=== PATIENT | female | born 1990 | race Hispanic/Latino ===

== ENCOUNTER 2018-07-23 19:12 | Emergency (ER) | payer MEDICAID, OTHER ==
[~2018-07-23 19:12] MED LIST: PREN1TAB89 PO
[2018-07-23 19:57] LABS: BILIRUBIN,URINE Negative (NEGATIVE); COLOR,URINE Yellow (YELLOW); GLUCOSE, URINE (UA) Negative (NEGATIVE); KETONES,URINE Trace mg/dL (NEGATIVE); LEUKOCYTE ESTERASE ,URINE Small (NEGATIVE); NITRATE,URINE Negative (NEGATIVE); OCCULT BLOOD,URINE Small (NEGATIVE); PH,URINE 5.5 (5.0-8.0); PROTEIN,URINE Negative (NEGATIVE); UROBILINOGEN,URINE 0.2 mg/dL (0.2-1.0)
[2018-07-23 19:58] LABS: APPEARANCE,URINE SLIGHTLY CLOUDY (CLEAR)
[2018-07-23 19:59] LABS: HCG,QUAL RESULT NEGATIVE (NEGATIVE)
[2018-07-23 20:20] LABS: BACTERIA,URINE Few /HPF (None Seen); MUCUS,URINE Rare LPF (None Seen); SQUAMOUS EPITHELIAL CELL,UR Moderate /HPF (0-2)
[2018-07-23] MEDS ORDERED: ONDANSETRON ODT 4 MG TAB ONE (20:20)
[2018-07-23] MEDS ORDERED: ACETAMINOPHEN EXTRA STRENGTH 500 MG TABLET ONE (20:20)
[2018-07-23] MEDS ORDERED: KETOROLAC TROMETHAMINE 60 MG/2 ML VIAL ONE (20:20)
== END 2018-07-23 21:10 | disposition home or self-care (01) ==
LOC: EDH 19:12
DX: N30.00 Acute cystitis without hematuria (principal)
CPT/HCPCS: 81001; 81025; 87804 ×2; 96372; 99283; J1885

== ENCOUNTER 2019-04-09 18:39 | Emergency (ER) | payer OTHER ==
[2019-04-09] MEDS ORDERED: DEXAMETHASONE SOD PHOSPHATE 10MG/ML 1ML VIAL ONE (19:05)
[2019-04-09] MEDS ORDERED: DIPHENHYDRAMINE HCL 25 MG CAPSULE ONE (19:06)
[2019-04-09] MEDS ORDERED: FAMOTIDINE 20MG TAB 20 MG TAB ONE (19:06)
== END 2019-04-09 20:26 | disposition home or self-care (01) ==
LOC: EDH 18:39
DX: L50.0 Allergic urticaria (principal)
CPT/HCPCS: 96372; 99283; J1100; Q0163

== ENCOUNTER 2019-07-10 08:08 | Emergency (ER) | payer MEDICAID ==
[2019-07-10 09:15] LABS: BASOPHILS % (AUTO) 0.1 % (0.0-5.0); EOSINOPHILS % (AUTO) 0.2 % (0.0-8.0); LYMPHOCYTES % (AUTO) 5.7 % (21.0-51.0); MEAN CORPUSCULAR HEMOGLOBIN 28.7 pg (27.0-33.0); MEAN CORPUSCULAR VOLUME 89.8 fL (79-99); MONOCYTES % (AUTO) 2.7 % (3.0-13.0); NEUTROPHILS % (AUTO) 90.9 % (40.0-77.0); PLATELET COUNT (AUTO) 294 K/uL (130-400); RED BLOOD CELL COUNT(AUTO) 5.01 MIL/uL (4.00-5.50); RED CELL DISTRIBUTION WIDTH 13.8 % (11.0-15.5); WHITE BLOOD COUNT (AUTO) 10.7 K/uL (4.8-10.8)
[2019-07-10 09:26] LABS: APPEARANCE,URINE Cloudy (CLEAR); BILIRUBIN,URINE Negative (NEGATIVE); COLOR,URINE Yellow (YELLOW); GLUCOSE, URINE (UA) Negative (NEGATIVE); KETONES,URINE Negative (NEGATIVE); LEUKOCYTE ESTERASE ,URINE Small (NEGATIVE); NITRATE,URINE Negative (NEGATIVE); OCCULT BLOOD,URINE Negative (NEGATIVE); PROTEIN,URINE Trace mg/dL (NEGATIVE)
[2019-07-10 09:29] LABS: AMPHET/METH SCREEN,URINE NEGATIVE (NEGATIVE); BARBITURATE SCREEN, URINE NEGATIVE (NEGATIVE); BENZODIAZEPINES SCREEN,URINE NEGATIVE (NEGATIVE); CANNABINOID SCREEN,URINE NEGATIVE (NEGATIVE); COCAINE SCREEN,URINE NEGATIVE (NEGATIVE); OPIATE SCREEN,URINE NEGATIVE (NEGATIVE); PHENCYCLIDINE SCREEN,URINE NEGATIVE (NEGATIVE)
[2019-07-10 09:31] LABS: CREATININE 0.7 mg/dL (0.5-1.5); POTASSIUM 4.1 mmol/L (3.5-5.1)
[2019-07-10 09:39] LABS: ALBUMIN 4.3 g/dL (3.5-5.0); BILIRUBIN,DIRECT 0.1 mg/dL (0.0-0.3); BILIRUBIN,TOTAL 0.5 mg/dL (0.2-1.0); TOTAL PROTEIN, SERUM 8.5 g/dL (6.0-8.3)
[2019-07-10 09:41] LABS: HCG,QUAL RESULT NEGATIVE (NEGATIVE)
[2019-07-10] MEDS ORDERED: KETOROLAC TROMETHAMINE 30MG/ML ONE (09:47)
[2019-07-10] MEDS ORDERED: ONDANSETRON HCL 4 MG/2 ML VIAL ONE (09:47)
[2019-07-10] MEDS ORDERED: SODIUM CHLORIDE 0.9% 1000ML 1,000 ML IV ONE (09:48)
[2019-07-10 09:59] LABS: BACTERIA,URINE Few /HPF (None Seen); RBC,URINE 0-1 /HPF (0-1); WBC,URINE 0-1 /HPF (0-1)
== END 2019-07-10 10:40 | disposition home or self-care (01) ==
LOC: EDH 08:08
DX: K52.9 Noninfective gastroenteritis and colitis, unspecified (principal)
CPT/HCPCS: 36415; 80048; 80076; 80305; 81001; 81025; 83690; 85025; 96361; 96374; 96375; 99284; J1885; J2405; J7030

== ENCOUNTER 2020-04-03 08:00 | Emergency (ER) | payer MEDICAID ==
[2020-04-03] MEDS ORDERED: ACETAMINOPHEN 325 MG TAB ONE (08:41)
== END 2020-04-03 10:08 | disposition home or self-care (01) ==
LOC: EDH 08:00
DX: U07.1 COVID-19 (principal)
CPT/HCPCS: 71045; 87426; 87804

== ENCOUNTER 2020-06-14 10:32 | Emergency (ER) | payer MEDICAID ==
[2020-06-14 11:15] LABS: APPEARANCE,URINE CLEAR (CLEAR); BILIRUBIN,URINE Negative (NEGATIVE); COLOR,URINE Yellow (YELLOW); GLUCOSE, URINE (UA) Negative (NEGATIVE); KETONES,URINE Negative (NEGATIVE); LEUKOCYTE ESTERASE ,URINE Large (NEGATIVE); NITRATE,URINE Negative (NEGATIVE); OCCULT BLOOD,URINE Nonhemolyzed Trace (NEGATIVE); PROTEIN,URINE Negative (NEGATIVE); UROBILINOGEN,URINE 0.2 mg/dL (0.2-1.0)
[2020-06-14 11:50] LABS: BACTERIA,URINE Moderate /HPF (None Seen)
[2020-06-14 11:51] LABS: MUCUS,URINE Moderate LPF (None Seen)
[2021-03-12] MEDS ORDERED: [UNRECOGNIZED DRUG - CODE] PO (13:13)
== END 2020-06-14 13:30 | disposition home or self-care (01) ==
LOC: EDH 10:32
DX: M54.5 Low back pain (principal); N39.0 Urinary tract infection, site not specified; E66.01 Morbid (severe) obesity due to excess calories; Z68.41 Body mass index [BMI] 40.0-44.9, adult
CPT/HCPCS: 81001; 81025; 87088

== ENCOUNTER → 2020-10-29 | Outpatient (CLI) | payer OTHER ==
[~2020-10-29] VITALS: Ht 7.6 cm; Wt 109.0 kg
== END | disposition home or self-care (01) ==
LOC: DTH 12:22
PROVIDERS: ATTEND Surgery
DX: G47.33 Obstructive sleep apnea (adult) (pediatric) (principal); E66.01 Morbid (severe) obesity due to excess calories; E11.9 Type 2 diabetes mellitus without complications; E78.00 Pure hypercholesterolemia, unspecified
CPT/HCPCS: 97802

== ENCOUNTER → 2020-11-27 | Outpatient (CLI) | payer OTHER | END | disposition home or self-care (01) | LOC: DTH 10:44 | PROVIDERS: ATTEND Surgery | DX: G47.33 Obstructive sleep apnea (adult) (pediatric) (principal); E66.01 Morbid (severe) obesity due to excess calories; E11.9 Type 2 diabetes mellitus without complications; E78.00 Pure hypercholesterolemia, unspecified | CPT/HCPCS: 97803 ==

== ENCOUNTER → 2020-12-29 | Outpatient (CLI) | payer OTHER | END | disposition home or self-care (01) | LOC: DTH 13:06 | PROVIDERS: ATTEND Surgery | DX: G47.33 Obstructive sleep apnea (adult) (pediatric) (principal); E66.01 Morbid (severe) obesity due to excess calories; E11.9 Type 2 diabetes mellitus without complications; E78.00 Pure hypercholesterolemia, unspecified | CPT/HCPCS: 97803 ==

== ENCOUNTER → 2021-03-03 | Outpatient (CLI) | payer OTHER | END | disposition home or self-care (01) | LOC: DTH 09:54 | PROVIDERS: ATTEND Surgery | DX: G47.33 Obstructive sleep apnea (adult) (pediatric) (principal); E66.01 Morbid (severe) obesity due to excess calories; E11.9 Type 2 diabetes mellitus without complications; E78.00 Pure hypercholesterolemia, unspecified | CPT/HCPCS: 97803 ==

== ENCOUNTER 2021-03-15 07:26 | Day surgery (SDC) | payer MEDICAID ==
[~2021-03-15] VITALS: Ht 160 cm; Wt 109.9 kg
[~2021-03-15 07:26] MED LIST changes: -PREN1TAB89 PO; +[UNRECOGNIZED DRUG - CODE] PO
[2021-03-15 08:21] VITALS: BP 124/71
[2021-03-15] MEDS ORDERED: LIDOCAINE HCL 400MG/20ML VIAL ONE (09:07)
[2021-03-15] MEDS ORDERED: PROPOFOL 10 MG/ML 20ML VIAL IV ONE (09:07)
[2021-03-15] MEDS ORDERED: MIDAZOLAM HCL 1 MG/ML 2ML VIAL ONE (09:07)
[2021-03-15] MEDS ORDERED: SUCCINYLCHOLINE 200MG/10ML SYR ONE (09:08)
[2021-03-15 09:21] VITALS: BP 94/50
[2021-03-15] MEDS ORDERED: 0.9%NACL 1000ML 1,000 ML IV ONE (09:21)
[2021-03-15 09:27] VITALS: BP 116/77
[2021-03-15 09:33] VITALS: BP 125/80
[2021-03-15 09:43] VITALS: BP 125/86
== END 2021-03-15 09:47 | disposition home or self-care (01) ==
LOC: DAH 07:26 → ENDO 07:26
PROVIDERS: ATTEND Surgery
DX: K21.9 Gastro-esophageal reflux disease without esophagitis (principal); Z20.822 Contact with and (suspected) exposure to COVID-19; E66.01 Morbid (severe) obesity due to excess calories; E11.9 Type 2 diabetes mellitus without complications; Z98.890 Other specified postprocedural states; Z68.41 Body mass index [BMI] 40.0-44.9, adult; Z83.42 Family history of familial hypercholesterolemia
CPT/HCPCS: 36415; 43235; 82948 ×2; 84703; 87635; A4215 ×2; A4221; A4222; A4223; A4606; A4620; A4663; C9803; J0330; J2250; J3490 ×2; J7030; J2704

== ENCOUNTER 2021-09-10 15:00 | Inpatient (IN) | payer MEDICAID ==
[~2021-09-10] VITALS: Ht 160 cm; Wt 108.0 kg
[2021-09-13] VITALS (22 sets, daily range): BP systolic 115–153; BP diastolic 66–91
[2021-09-13 08:59] LABS: BASOPHILS % (AUTO) 0.2 % (0.0-5.0); EOSINOPHILS % (AUTO) 0.5 % (0.0-8.0); HEMATOCRIT 41.2 % (36-48); LYMPHOCYTES % (AUTO) 17.1 % (21.0-51.0); MEAN CORPUSCULAR HEMOGLOBIN 29.2 pg (27.0-33.0); MEAN CORPUSCULAR HGB CONC 32.8 g/dL (32.0-36.0); MEAN CORPUSCULAR VOLUME 89.2 fL (79-99); MONOCYTES % (AUTO) 5.9 % (3.0-13.0); NEUTROPHILS % (AUTO) 75.9 % (40.0-77.0); PLATELET COUNT (AUTO) 338 K/uL (130-400); RED BLOOD CELL COUNT(AUTO) 4.62 MIL/uL (4.00-5.50); RED CELL DISTRIBUTION WIDTH 13.6 % (11.0-15.5); WHITE BLOOD COUNT (AUTO) 9.2 K/uL (4.8-10.8)
[2021-09-13 09:06] LABS: CREATININE 0.7 mg/dL (0.5-1.5); POTASSIUM 4.3 mmol/L (3.5-5.1)
[2021-09-13 09:15] LABS: INR 1.03 (0.85-1.15); PROTHROMBIN TIME 11.2 SEC (9.6-11.6)
[2021-09-13 09:17] LABS: PARTIAL THROMBOPLASTIN TIME 29.1 SEC (26.3-35.5)
[2021-09-13] MEDS ORDERED: 0.9%NACL 1000ML 1,000 ML IV ONE (09:38)
[2021-09-13] MEDS ORDERED: CEFOXITIN SODIUM 2 GM VIAL ONE (09:38)
[2021-09-13] MEDS ORDERED: DEXAMETHASONE SOD PHOSPHATE 10MG/ML 1ML VIAL ONE (10:04)
[2021-09-13] MEDS ORDERED: LIDOCAINE PF 100MG/5ML (2%) SYRINGE 5ML ONE (10:04)
[2021-09-13] MEDS ORDERED: SUCCINYLCHOLINE CHLORIDE 20 MG/ML 10 ML VIAL ONE (10:04)
[2021-09-13] MEDS ORDERED: ROCURONIUM 10MG/1ML SYR 10 MG/ML ML ONE (10:05)
[2021-09-13] MEDS ORDERED: NEOSTIGMINE 5MG/5ML SYR IV ONE (10:05)
[2021-09-13] MEDS ORDERED: ONDANSETRON 4MG INJ ONE ×2 (10:05→11:54)
[2021-09-13] MEDS ORDERED: PROPOFOL 10 MG/ML 20ML VIAL IV ONE (10:05)
[2021-09-13] MEDS ORDERED: GLYCOPYRROLATE 1 MG/5 ML SYRINGE ONE (10:05)
[2021-09-13] MEDS ORDERED: FENTANYL CITRATE PF 50 MCG/1 ML 2ML VIAL ONE (10:05)
[2021-09-13] MEDS ORDERED: MIDAZOLAM HCL 1 MG/ML 2ML VIAL ONE (10:05)
[2021-09-13] MEDS ORDERED: METF-444 PO (10:21)
[2021-09-13] MEDS ORDERED: BUPIVACAINE/PF 0.5% 30ML VIAL ONE (11:39)
[2021-09-13] MEDS ORDERED: FENTANYL CITRATE PF 50 MCG/1 ML 5ML AMP IV ONE (11:43)
[2021-09-13] MEDS ORDERED: MEPERIDINE-PF 25 MG/ML SYG ONE ×2 (12:55→13:41)
[2021-09-13] MEDS ORDERED: RACEPINEPHRINE HCL 2.25% 0.5 ML NEB SOLN ONE (13:24)
[2021-09-13] MEDS: LACTATED RINGERS 1000ML 1,000 ML IV SCH ×2 (14:28→22:46)
[2021-09-13] MEDS: KETOROLAC 30MG VIAL (30MG/ML) IVP PRN (14:41)
[2021-09-13] MEDS: ONDANSETRON 4MG INJ IVP PRN ×2 (14:44→21:38)
[2021-09-13] MEDS: CEFAZOLIN SODIUM 1 GM VIAL IVP SCH ×2 (14:45→21:26)
[2021-09-13] MEDS: INSULIN HUMULIN R 100 UNIT/ML 3ML SQ SCH ×2 (16:30→21:00)
[2021-09-13] MEDS: MORPHINE 5 MG/ML VIAL (5MG OR GREATER DOSE) IVP PRN (17:52)
[2021-09-13] MEDS ORDERED: LORAZEPAM 2 MG/ML 1 ML VIAL IVP PRN (18:00)
[2021-09-13] MEDS: FAMOTIDINE 20MG VIAL IV SCH (21:26)
[2021-09-13] MEDS: ENOXAPARIN SODIUM 30 MG/0.3 ML SQ SCH (21:45)
[2021-09-14 00:02] VITALS: BP 106/76
[2021-09-14] MEDS: KETOROLAC 30MG VIAL (30MG/ML) IVP PRN ×2 (01:43→15:25)
[2021-09-14] MEDS: MORPHINE 5 MG/ML VIAL (5MG OR GREATER DOSE) IVP PRN ×4 (04:58→18:52)
[2021-09-14 05:01] VITALS: BP 128/82
[2021-09-14 05:06] LABS: CREATININE 0.7 mg/dL (0.5-1.5); POTASSIUM 4.5 mmol/L (3.5-5.1)
[2021-09-14] MEDS: LACTATED RINGERS 1000ML 1,000 ML IV SCH ×2 (06:19→14:11)
[2021-09-14] MEDS: INSULIN HUMULIN R 100 UNIT/ML 3ML SQ SCH ×4 (06:50→21:00)
[2021-09-14 08:58] VITALS: BP 126/73
[2021-09-14] MEDS: ENOXAPARIN SODIUM 30 MG/0.3 ML SQ SCH ×2 (09:40→21:23)
[2021-09-14] MEDS: FAMOTIDINE 20MG VIAL IV SCH ×2 (09:41→21:21)
[2021-09-14 12:08] VITALS: BP 127/70
[2021-09-14] MEDS: ONDANSETRON 4MG INJ IVP PRN ×2 (14:02→18:52)
[2021-09-14 16:31] VITALS: BP 119/66
[2021-09-14 20:28] VITALS: BP 112/63
[2021-09-14 22:45] LABS: APPEARANCE,URINE Cloudy (CLEAR); BILIRUBIN,URINE Negative (NEGATIVE); COLOR,URINE Yellow (YELLOW); GLUCOSE, URINE (UA) Negative (NEGATIVE); KETONES,URINE 40 mg/dL (NEGATIVE); LEUKOCYTE ESTERASE ,URINE Small (NEGATIVE); NITRATE,URINE Negative (NEGATIVE); OCCULT BLOOD,URINE Negative (NEGATIVE); PH,URINE 5.5 (5.0-8.0); PROTEIN,URINE Negative (NEGATIVE); UROBILINOGEN,URINE 0.2 mg/dL (0.2-1.0)
[2021-09-14 23:01] LABS: RBC,URINE 0-1 /HPF (0-1)
[2021-09-14 23:03] LABS: BACTERIA,URINE Rare /HPF (None Seen); SQUAMOUS EPITHELIAL CELL,UR Many /HPF (0-2)
[2021-09-15] VITALS (7 sets, daily range): BP systolic 102–120; BP diastolic 58–72
[2021-09-15] MEDS: LACTATED RINGERS 1000ML 1,000 ML IV SCH ×3 (02:29→18:36)
[2021-09-15] MEDS: MORPHINE 5 MG/ML VIAL (5MG OR GREATER DOSE) IVP PRN (04:27)
[2021-09-15] MEDS: INSULIN HUMULIN R 100 UNIT/ML 3ML SQ SCH ×4 (06:35→20:46)
[2021-09-15] MEDS: ENOXAPARIN SODIUM 30 MG/0.3 ML SQ SCH ×2 (09:06→20:41)
[2021-09-15] MEDS: FAMOTIDINE 20MG VIAL IV SCH ×2 (09:06→20:40)
[2021-09-15] MEDS ORDERED: ZOSYN 3.375GM+NS 50ML 50 ML ONE (10:25)
[2021-09-15 10:43] LABS: HEMATOCRIT 21.9 % (36-48); MEAN CORPUSCULAR VOLUME 90.9 fL (79-99); PLATELET COUNT (AUTO) 244 K/uL (130-400); RED BLOOD CELL COUNT(AUTO) 2.41 MIL/uL (4.00-5.50); WHITE BLOOD COUNT (AUTO) 9.9 K/uL (4.8-10.8)
[2021-09-15 10:55] LABS: ALBUMIN 2.9 g/dL (3.5-5.0); BILIRUBIN,TOTAL 0.3 mg/dL (0.2-1.0); CREATININE 0.5 mg/dL (0.5-1.5); POTASSIUM 3.8 mmol/L (3.5-5.1); TOTAL PROTEIN, SERUM 6.2 g/dL (6.0-8.3)
[2021-09-15 11:53] LABS: LYMPHOCYTES % (MANUAL) 16 % (22-44); MONOCYTES % (MANUAL) 7 % (2-9); SEGMENTED NEUTROPHILS % 77 % (40-70)
[2021-09-15 12:04] LABS: MAN.DIFF COMMENT-IMPRESSION MANUAL DIFFERENTIAL; PLATELET MORPHOLOGY COMMENT ADEQUATE
[2021-09-15] MEDS: ONDANSETRON 4MG INJ IVP PRN (12:27)
[2021-09-15] MEDS: ZOSYN 3.375GM +NS 50ML IV SCH ×2 (13:00→20:41)
[2021-09-15] MEDS: KETOROLAC 30MG VIAL (30MG/ML) IVP PRN ×2 (13:06→18:36)
[2021-09-16] MEDS: KETOROLAC 30MG VIAL (30MG/ML) IVP PRN (00:21)
[2021-09-16] MEDS: LACTATED RINGERS 1000ML 1,000 ML IV SCH (03:54)
[2021-09-16] MEDS: ZOSYN 3.375GM +NS 50ML IV SCH (03:54)
[2021-09-16 04:08] VITALS: BP 107/70
[2021-09-16 04:12] LABS: HEMATOCRIT 23.3 % (36-48)
[2021-09-16] MEDS: INSULIN HUMULIN R 100 UNIT/ML 3ML SQ SCH ×2 (06:19→11:30)
[2021-09-16 07:45] VITALS: BP 115/73
[2021-09-16] MEDS: FAMOTIDINE 20MG VIAL IV SCH (08:31)
[2021-09-16] MEDS: ENOXAPARIN SODIUM 30 MG/0.3 ML SQ SCH (08:32)
[2021-09-16 11:13] VITALS: BP 102/66
== END 2021-09-16 14:11 | disposition home or self-care (01) | DRG 403 ==
LOC: EDSTATUS 15:00 → DAHIP 09-13 07:00 → 4BH 09-13 14:03
PROVIDERS: ADMIT Surgery; ATTEND Surgery
PROC: 0DJ08ZZ Inspection of Upper Intestinal Tract, Via Natural or Artificial Opening Endoscopic (ICD-10-PCS; 2021-09-13)
PROC: 0D164ZA Bypass Stomach to Jejunum, Percutaneous Endoscopic Approach (ICD-10-PCS; principal; 2021-09-13 09:20)
PROC: 30233N1 Transfusion of Nonautologous Red Blood Cells into Peripheral Vein, Percutaneous Approach (ICD-10-PCS; 2021-09-15)
DX: E66.01 Morbid (severe) obesity due to excess calories (principal); N39.0 Urinary tract infection, site not specified; Z87.440 Personal history of urinary (tract) infections; Z68.41 Body mass index [BMI] 40.0-44.9, adult
CPT/HCPCS: 36415; 36430; 43235; 71045; 80048; 80053; 81001; 82948; 84703; 85014; 85018; 85025; 85610; 85730; 86850; 86900; 86901; 86923; 87635; 93005; 94640; 94760; G0378; J0330; J0690; J0694; J1100; J1650; J1885; J2001; J2175; J2250; J2270; J2405; J2543; J2704; J2710; J3010; J3490; J7030; J7120; P9016

== ENCOUNTER 2022-01-03 09:13 | Emergency (ER) | payer MEDICAID ==
[~2022-01-03] VITALS: Ht 160 cm; Wt 81.6 kg
[~2022-01-03 09:13] MED LIST changes: +METF-444 PO; -[UNRECOGNIZED DRUG - CODE] PO
[2022-01-03] MEDS ORDERED: PRED50TA2 PO (09:46)
[2022-01-03 09:49] VITALS: BP 106/63
[2022-01-03] MEDS ORDERED: SOLU-MEDROL 125MG VIAL IM ONE (10:00)
== END 2022-01-03 15:05 | disposition home or self-care (01) ==
LOC: EDH 09:13
DX: M79.641 Pain in right hand (principal); L08.9 Local infection of the skin and subcutaneous tissue, unspecified; Z98.890 Other specified postprocedural states
CPT/HCPCS: 99283; 29125; 96372; J2930

== ENCOUNTER 2022-03-19 15:35 | Emergency (ER) | payer MEDICAID ==
[~2022-03-19] VITALS: Ht 160 cm; Wt 74.8 kg
[~2022-03-19 15:35] MED LIST changes: +PRED50TA2 PO
[2022-03-19 16:06] LABS: BASOPHILS % (AUTO) 0.4 % (0.0-5.0); EOSINOPHILS % (AUTO) 0.9 % (0.0-8.0); HEMATOCRIT 36.5 % (36-48); LYMPHOCYTES % (AUTO) 30.6 % (21.0-51.0); MEAN CORPUSCULAR HEMOGLOBIN 30.3 pg (27.0-33.0); MEAN CORPUSCULAR HGB CONC 33.2 g/dL (32.0-36.0); MEAN CORPUSCULAR VOLUME 91.5 fL (79-99); MONOCYTES % (AUTO) 6.7 % (3.0-13.0); NEUTROPHILS % (AUTO) 61.3 % (40.0-77.0); PLATELET COUNT (AUTO) 253 K/uL (130-400); RED BLOOD CELL COUNT(AUTO) 3.99 MIL/uL (4.00-5.50); RED CELL DISTRIBUTION WIDTH 13.8 % (11.0-15.5); WHITE BLOOD COUNT (AUTO) 7.5 K/uL (4.8-10.8)
[2022-03-19 16:17] LABS: CREATININE 0.7 mg/dL (0.5-1.5); POTASSIUM 3.7 mmol/L (3.5-5.1)
[2022-03-19 16:24] LABS: ALBUMIN 3.8 g/dL (3.5-5.0); TOTAL PROTEIN, SERUM 7.4 g/dL (6.0-8.3)
[2022-03-19 17:15] LABS: APPEARANCE,URINE CLEAR (CLEAR); BILIRUBIN,URINE NEGATIVE (NEGATIVE); COLOR,URINE YELLOW (YELLOW); GLUCOSE, URINE (UA) NEGATIVE (NEGATIVE); KETONES,URINE 5 mg/dL (NEGATIVE); LEUKOCYTE ESTERASE ,URINE 75 Leu/uL (NEGATIVE); NITRATE,URINE NEGATIVE (NEGATIVE); OCCULT BLOOD,URINE NEGATIVE (NEGATIVE); PROTEIN,URINE 30 mg/dL (NEGATIVE); UROBILINOGEN,URINE 0.2 mg/dL (0.2-1.0)
[2022-03-19 17:22] LABS: BACTERIA,URINE RARE /HPF (None Seen); MUCUS,URINE MANY LPF (None Seen); SQUAMOUS EPITHELIAL CELL,UR FEW /HPF (0-2)
[2022-03-19 17:42] VITALS: BP 104/60
[2022-03-19] MEDS ORDERED: DICY20TA2 PO (18:37)
== END 2022-03-19 18:46 | disposition home or self-care (01) ==
LOC: EDH 15:35
DX: R10.32 Left lower quadrant pain (principal); Z79.52 Long term (current) use of systemic steroids; Z98.84 Bariatric surgery status
CPT/HCPCS: 36415; 74176; 80053; 81001; 81025; 85025; 86140; 87088

== ENCOUNTER 2022-04-17 08:56 | Emergency (ER) | payer MEDICAID ==
[~2022-04-17] VITALS: Ht 160 cm; Wt 73.5 kg
[~2022-04-17 08:56] MED LIST changes: +DICY20TA2 PO
[2022-04-17 09:29] LABS: BASOPHILS % (AUTO) 0.5 % (0.0-5.0); EOSINOPHILS % (AUTO) 0.8 % (0.0-8.0); LYMPHOCYTES % (AUTO) 31.3 % (21.0-51.0); MEAN CORPUSCULAR HEMOGLOBIN 31.1 pg (27.0-33.0); MEAN CORPUSCULAR HGB CONC 33.9 g/dL (32.0-36.0); MEAN CORPUSCULAR VOLUME 91.6 fL (79-99); MONOCYTES % (AUTO) 5.7 % (3.0-13.0); NEUTROPHILS % (AUTO) 61.4 % (40.0-77.0); PLATELET COUNT (AUTO) 273 K/uL (130-400); RED BLOOD CELL COUNT(AUTO) 4.15 MIL/uL (4.00-5.50); RED CELL DISTRIBUTION WIDTH 13.4 % (11.0-15.5); WHITE BLOOD COUNT (AUTO) 6.2 K/uL (4.8-10.8)
[2022-04-17] MEDS ORDERED: MORPHINE 2 MG SYG IVP ONE (09:30)
[2022-04-17] MEDS ORDERED: ONDANSETRON 4MG INJ IVP ONE (09:30)
[2022-04-17 09:41] LABS: CREATININE 0.7 mg/dL (0.5-1.5); POTASSIUM 3.9 mmol/L (3.5-5.1)
[2022-04-17 09:51] LABS: ALBUMIN 3.9 g/dL (3.5-5.0); TOTAL PROTEIN, SERUM 7.5 g/dL (6.0-8.3)
[2022-04-17] MEDS ORDERED: IBUP-1493 PO (10:15)
[2022-04-17 10:26] VITALS: BP 110/64
[2022-04-17] MEDS ORDERED: MORPHINE 4 MG SYG IVP ONE (10:30)
[2022-04-17 11:00] LABS: APPEARANCE,URINE CLOUDY (CLEAR); BILIRUBIN,URINE NEGATIVE (NEGATIVE); COLOR,URINE YELLOW (YELLOW); GLUCOSE, URINE (UA) NEGATIVE (NEGATIVE); KETONES,URINE >=80 mg/dL (NEGATIVE); LEUKOCYTE ESTERASE ,URINE 500 Leu/uL (NEGATIVE); NITRATE,URINE NEGATIVE (NEGATIVE); OCCULT BLOOD,URINE NEGATIVE (NEGATIVE); PROTEIN,URINE 20 mg/dL (NEGATIVE); UROBILINOGEN,URINE 0.2 mg/dL (0.2-1.0)
[2022-04-17 11:07] LABS: BACTERIA,URINE FEW /HPF (None Seen); MUCUS,URINE MANY LPF (None Seen); OTHER CASTS, URINE 1 /LPF (None Seen); SQUAMOUS EPITHELIAL CELL,UR MOD /HPF (0-2)
[2022-04-18] MEDS ORDERED: MACR100 PO (03:29)
[2022-04-20] MEDS ORDERED: IBUP-2077 PO (16:02)
[2022-04-20] MEDS ORDERED: DOCU-116 PO (16:03)
[2022-04-20] MEDS ORDERED: ACET-2079 PO (16:04)
== END 2022-04-17 10:59 | disposition home or self-care (01) ==
LOC: EDH 08:56
DX: N83.202 Unspecified ovarian cyst, left side (principal); R10.2 Pelvic and perineal pain; Z98.890 Other specified postprocedural states; Z79.899 Other long term (current) drug therapy
CPT/HCPCS: 99284; 96374; 76856; 96375; 80053; 84702; 85025; 87088; 81001; 36415; 96376; J2405; J2270

== ENCOUNTER 2022-04-17 23:58 | Emergency (ER) | payer MEDICAID ==
[~2022-04-17] VITALS: Ht 160 cm; Wt 74.8 kg
[~2022-04-17 23:58] MED LIST changes: +IBUP-1493 PO
[2022-04-18 00:52] LABS: AMPHET/METH SCREEN,URINE NEGATIVE (NEGATIVE); BARBITURATE SCREEN, URINE NEGATIVE (NEGATIVE); BENZODIAZEPINES SCREEN,URINE NEGATIVE (NEGATIVE); CANNABINOID SCREEN,URINE NEGATIVE (NEGATIVE); COCAINE SCREEN,URINE NEGATIVE (NEGATIVE); OPIATE SCREEN,URINE POSITIVE (NEGATIVE); PHENCYCLIDINE SCREEN,URINE NEGATIVE (NEGATIVE)
[2022-04-18] MEDS ORDERED: ONDANSETRON 4MG INJ IVP ONE (02:00)
[2022-04-18] MEDS ORDERED: KETOROLAC 30MG VIAL (30MG/ML) IVP ONE (02:00)
[2022-04-18] MEDS ORDERED: CEFTRIAXONE 1G VIAL IVP ONE (02:00)
[2022-04-18] MEDS ORDERED: MORPHINE 4 MG SYG IVP ONE (02:00)
[2022-04-18] MEDS ORDERED: LACTATED RINGERS 1000ML 1,000 ML IV ONE (02:00)
[2022-04-18 03:17] VITALS: BP 104/52
[2022-04-18] MEDS ORDERED: MACR100 PO (03:29)
[2022-04-18] MEDS ORDERED: MORPHINE 2 MG SYG IVP ONE (03:30)
[2022-04-19] MEDS ORDERED: ROPIVACAINE 0.5% 5MG/ML 30ML IJ ONE (05:53)
[2022-04-20] MEDS ORDERED: IBUP-2077 PO (16:02)
[2022-04-20] MEDS ORDERED: DOCU-116 PO (16:03)
[2022-04-20] MEDS ORDERED: ACET-2079 PO (16:04)
== END 2022-04-18 03:51 | disposition home or self-care (01) ==
LOC: EDH 23:58
DX: R10.32 Left lower quadrant pain (principal); N30.00 Acute cystitis without hematuria; E86.0 Dehydration; E28.2 Polycystic ovarian syndrome; Z98.890 Other specified postprocedural states
CPT/HCPCS: 99284; 80305; 96374; 96375; 96361; 96376; J7120; J0696; J2405; J2270; J1885; J2795

== ENCOUNTER 2023-05-21 12:08 | Emergency (ER) | payer MEDICAID ==
[~2023-05-21] VITALS: Ht 160 cm; Wt 61.7 kg
[~2023-05-21 12:08] MED LIST changes: +ACET-2079 PO; +DOCU-116 PO; +IBUP-2077 PO; +MACR100 PO
[2023-05-21] MEDS ORDERED: ONDANSETRON ODT 4MG TAB SL ONE (12:30)
[2023-05-21 12:33] LABS: APPEARANCE,URINE CLEAR (CLEAR); BILIRUBIN,URINE NEGATIVE (NEGATIVE); GLUCOSE, URINE (UA) NEGATIVE (NEGATIVE); KETONES,URINE NEGATIVE (NEGATIVE); LEUKOCYTE ESTERASE ,URINE NEGATIVE Leu/uL (NEGATIVE); NITRATE,URINE NEGATIVE (NEGATIVE); OCCULT BLOOD,URINE NEGATIVE (NEGATIVE); PH,URINE 5.5 (5.0-8.0); PROTEIN,URINE NEGATIVE (NEGATIVE); UROBILINOGEN,URINE 0.2 mg/dL (0.2-1.0)
[2023-05-21 12:34] LABS: ADD UA MICROSCOPIC NO; COLOR,URINE YELLOW (YELLOW)
[2023-05-21 12:50] LABS: BASOPHILS # (AUTO) 0.04 K/uL (0.00-0.20); BASOPHILS % (AUTO) 0.8 % (0.0-5.0); EOSINOPHILS # (AUTO) 0.11 K/uL (0.00-0.70); EOSINOPHILS % (AUTO) 2.3 % (0.0-8.0); HEMATOCRIT 38.9 % (36-48); LYMPHOCYTES # (AUTO) 2.1 K/uL (1.0-4.8); LYMPHOCYTES % (AUTO) 43.4 % (21.0-51.0); MEAN CORPUSCULAR HEMOGLOBIN 31.6 pg (27.0-33.0); MEAN CORPUSCULAR HGB CONC 33.2 g/dL (32.0-36.0); MEAN CORPUSCULAR VOLUME 95.3 fL (79-99); MONOCYTES # (AUTO) 0.4 K/uL (0.1-1.0); MONOCYTES % (AUTO) 7.2 % (3.0-13.0); NEUTROPHILS # (AUTO) 2.2 K/uL (1.8-7.7); NEUTROPHILS % (AUTO) 46.3 % (40.0-77.0); PLATELET COUNT (AUTO) 235 K/uL (130-400); RED BLOOD CELL COUNT(AUTO) 4.08 MIL/uL (4.00-5.50); RED CELL DISTRIBUTION WIDTH 12.6 % (11.0-15.5); WHITE BLOOD COUNT (AUTO) 4.8 K/uL (4.8-10.8)
[2023-05-21 13:01] LABS: CREATININE 0.7 mg/dL (0.5-1.5); POTASSIUM 4.4 mmol/L (3.5-5.1)
[2023-05-21 13:03] LABS: ALBUMIN 3.9 g/dL (3.5-5.0); BILIRUBIN,TOTAL 0.5 mg/dL (0.2-1.0); TOTAL PROTEIN, SERUM 7.3 g/dL (6.0-8.3)
[2023-05-21 13:04] VITALS: BP 101/52; PULSE 58; RESP 14; O2SAT 100
[2023-05-21] MEDS ORDERED: CALC-877 PO (13:18)
[2023-05-21] MEDS ORDERED: ONDA4TAB10 PO (13:18)
== END 2023-05-21 13:21 | disposition home or self-care (01) ==
LOC: EDH 12:08
DX: R11.2 Nausea with vomiting, unspecified (principal); E66.9 Obesity, unspecified; Z79.1 Long term (current) use of non-steroidal anti-inflammatories (NSAID); Z79.52 Long term (current) use of systemic steroids; Z98.84 Bariatric surgery status
CPT/HCPCS: 36415; 80053; 81003; 84703; 85025

== ENCOUNTER 2023-07-08 23:11 | Emergency (ER) | payer MEDICAID ==
[~2023-07-08] VITALS: Ht 160 cm; Wt 61.7 kg
[~2023-07-08 23:11] MED LIST changes: +CALC-877 PO; +ONDA4TAB10 PO
[2023-07-08 23:38] LABS: BASOPHILS # (AUTO) 0.01 K/uL (0.00-0.20); BASOPHILS % (AUTO) 0.1 % (0.0-5.0); EOSINOPHILS # (AUTO) 0.09 K/uL (0.00-0.70); EOSINOPHILS % (AUTO) 1.3 % (0.0-8.0); HEMATOCRIT 35.5 % (36-48); IMMATURE GRANULOCYTE ABSOLUTE 0.01 K/uL (0-1); LYMPHOCYTES # (AUTO) 2.6 K/uL (1.0-4.8); MEAN CORPUSCULAR HEMOGLOBIN 30.8 pg (27.0-33.0); MEAN CORPUSCULAR HGB CONC 33.5 g/dL (32.0-36.0); MONOCYTES # (AUTO) 0.5 K/uL (0.1-1.0); MONOCYTES % (AUTO) 6.9 % (3.0-13.0); NEUTROPHILS # (AUTO) 3.5 K/uL (1.8-7.7); NEUTROPHILS % (AUTO) 52.6 % (40.0-77.0); PLATELET COUNT (AUTO) 220 K/uL (130-400); RED BLOOD CELL COUNT(AUTO) 3.86 MIL/uL (4.00-5.50); RED CELL DISTRIBUTION WIDTH 12.6 % (11.0-15.5); WHITE BLOOD COUNT (AUTO) 6.7 K/uL (4.8-10.8)
[2023-07-08 23:46] LABS: CREATININE 0.6 mg/dL (0.5-1.5); POTASSIUM 3.8 mmol/L (3.5-5.1)
[2023-07-09 00:13] LABS: ALBUMIN 3.7 g/dL (3.5-5.0); BILIRUBIN,TOTAL 0.3 mg/dL (0.2-1.0)
[2023-07-09 00:38] LABS: APPEARANCE,URINE CLEAR (CLEAR); BILIRUBIN,URINE NEGATIVE (NEGATIVE); COLOR,URINE YELLOW (YELLOW); GLUCOSE, URINE (UA) NEGATIVE (NEGATIVE); KETONES,URINE NEGATIVE (NEGATIVE); LEUKOCYTE ESTERASE ,URINE 75 Leu/uL (NEGATIVE); NITRATE,URINE NEGATIVE (NEGATIVE); OCCULT BLOOD,URINE NEGATIVE (NEGATIVE); PROTEIN,URINE 10 mg/dL (NEGATIVE); UROBILINOGEN,URINE 0.2 mg/dL (0.2-1.0)
[2023-07-09 00:41] LABS: ADD UA MICROSCOPIC YES; HCG,QUALITATIVE URINE POSITIVE (NEGATIVE)
[2023-07-09 00:42] LABS: MUCUS,URINE FEW LPF (None Seen); SQUAMOUS EPITHELIAL CELL,UR FEW /HPF (0-2)
[2023-07-09] MEDS: LACTATED RINGERS 1000ML 1,000 ML IV ONE (02:30)
[2023-07-09] MEDS: ACETAMINOPHEN 500 MG TABLET PO ONE (02:30)
[2023-07-09] MEDS ORDERED: CEPH500T PO (03:41)
[2023-07-09] MEDS: CEPHALEXIN 500 MG CAPSULE PO ONE (03:49)
[2023-07-09 03:55] VITALS: BP 121/63; PULSE 82; RESP 16; O2SAT 98
== END 2023-07-09 04:06 | disposition home or self-care (01) ==
LOC: EDH 23:11
DX: O23.41 Unspecified infection of urinary tract in pregnancy, first trimester (principal); O20.0 Threatened abortion; Z79.899 Other long term (current) drug therapy; Z98.890 Other specified postprocedural states; Z3A.01 Less than 8 weeks gestation of pregnancy
CPT/HCPCS: 99284; 76801; 80053; 84702; 83690; 85025; 87088; 81001; 81025; 36415; 96360; J7120

== ENCOUNTER 2023-10-02 19:56 | Emergency (ER) | payer MEDICAID ==
[~2023-10-02] VITALS: Ht 160 cm; Wt 62.6 kg
[~2023-10-02 19:56] MED LIST changes: +CEPH500T PO
[2023-10-02 20:38] LABS: BASOPHILS # (AUTO) 0.04 K/uL (0.00-0.20); BASOPHILS % (AUTO) 0.4 % (0.0-5.0); EOSINOPHILS # (AUTO) 0.07 K/uL (0.00-0.70); EOSINOPHILS % (AUTO) 0.7 % (0.0-8.0); HEMATOCRIT 41.3 % (36-48); IMMATURE GRANULOCYTE ABSOLUTE 0.03 K/uL (0-1); LYMPHOCYTES # (AUTO) 3.1 K/uL (1.0-4.8); LYMPHOCYTES % (AUTO) 30.6 % (21.0-51.0); MEAN CORPUSCULAR HEMOGLOBIN 31.4 pg (27.0-33.0); MEAN CORPUSCULAR HGB CONC 34.1 g/dL (32.0-36.0); MONOCYTES # (AUTO) 0.7 K/uL (0.1-1.0); MONOCYTES % (AUTO) 6.5 % (3.0-13.0); NEUTROPHILS # (AUTO) 6.2 K/uL (1.8-7.7); NEUTROPHILS % (AUTO) 61.5 % (40.0-77.0); PLATELET COUNT (AUTO) 256 K/uL (130-400); RED BLOOD CELL COUNT(AUTO) 4.49 MIL/uL (4.00-5.50); RED CELL DISTRIBUTION WIDTH 12.5 % (11.0-15.5); WHITE BLOOD COUNT (AUTO) 10.1 K/uL (4.8-10.8)
[2023-10-02 20:47] LABS: CREATININE 0.6 mg/dL (0.5-1.0); POTASSIUM 3.9 mmol/L (3.5-5.1)
[2023-10-02 21:21] LABS: ALBUMIN 4.1 g/dL (3.5-5.0); BILIRUBIN,TOTAL 0.4 mg/dL (0.2-1.0); TOTAL PROTEIN, SERUM 7.8 g/dL (6.0-8.3)
[2023-10-02] MEDS: ONDANSETRON 4MG INJ IVP ONE (22:49)
[2023-10-02] MEDS: LACTATED RINGERS 1000ML 1,000 ML IV ONE (22:50)
[2023-10-02 22:58] LABS: APPEARANCE,URINE CLEAR (CLEAR); BILIRUBIN,URINE SMALL mg/dL (NEGATIVE); COLOR,URINE YELLOW (YELLOW); GLUCOSE, URINE (UA) NEGATIVE (NEGATIVE); KETONES,URINE NEGATIVE (NEGATIVE); LEUKOCYTE ESTERASE ,URINE NEGATIVE Leu/uL (NEGATIVE); NITRATE,URINE NEGATIVE (NEGATIVE); OCCULT BLOOD,URINE NEGATIVE (NEGATIVE); PH,URINE 5.5 (5.0-8.0); PROTEIN,URINE TRACE mg/dL (NEGATIVE)
[2023-10-02 22:59] LABS: HCG,QUALITATIVE URINE POSITIVE (NEGATIVE)
[2023-10-02 23:00] LABS: ADD UA MICROSCOPIC YES
[2023-10-02 23:06] LABS: BACTERIA,URINE None Seen /HPF (None Seen); MUCUS,URINE Few LPF (None Seen); RBC,URINE None Seen /HPF (0-1); SQUAMOUS EPITHELIAL CELL,UR Moderate /HPF (0-2); WBC,URINE None Seen /HPF (0-1)
[2023-10-02] MEDS ORDERED: [UNRECOGNIZED DRUG - CODE] MC (23:55)
[2023-10-03 00:05] VITALS: BP 106/65; PULSE 56; RESP 18; O2SAT 98
== END 2023-10-03 00:10 | disposition home or self-care (01) ==
LOC: EDH 19:56
DX: O21.0 Mild hyperemesis gravidarum (principal); O26.891 Other specified pregnancy related conditions, first trimester; R10.2 Pelvic and perineal pain; Z79.1 Long term (current) use of non-steroidal anti-inflammatories (NSAID); Z79.52 Long term (current) use of systemic steroids; Z98.84 Bariatric surgery status
CPT/HCPCS: 99283; 96374; 96361; 80053; 84702; 83690; 85025; 81001; 81025; 36415; J7120; J2405

== ENCOUNTER 2023-10-22 16:37 | Emergency (ER) | payer MEDICAID ==
[~2023-10-22] VITALS: Ht 160 cm; Wt 62.6 kg
[~2023-10-22 16:37] MED LIST changes: +ONDA-243 PO; -ONDA4TAB10 PO; +[UNRECOGNIZED DRUG - CODE] MC
[2023-10-22 17:06] VITALS: BP 107/62; PULSE 76; RESP 16
[2023-10-22 17:27] LABS: ADD UA MICROSCOPIC YES; APPEARANCE,URINE CLEAR (CLEAR); BILIRUBIN,URINE NEGATIVE (NEGATIVE); COLOR,URINE YELLOW (YELLOW); GLUCOSE, URINE (UA) NEGATIVE (NEGATIVE); KETONES,URINE NEGATIVE (NEGATIVE); LEUKOCYTE ESTERASE ,URINE 25 Leu/uL (NEGATIVE); NITRATE,URINE NEGATIVE (NEGATIVE); OCCULT BLOOD,URINE MODERATE (NEGATIVE); PROTEIN,URINE 10 mg/dL (NEGATIVE); UROBILINOGEN,URINE 0.2 mg/dL (0.2-1.0)
[2023-10-22 17:30] LABS: BACTERIA,URINE RARE /HPF (None Seen); MUCUS,URINE MANY LPF (None Seen); SQUAMOUS EPITHELIAL CELL,UR RARE /HPF (0-2)
[2023-10-22 17:46] LABS: BASOPHILS # (AUTO) 0.02 K/uL (0.00-0.20); BASOPHILS % (AUTO) 0.3 % (0.0-5.0); EOSINOPHILS # (AUTO) 0.06 K/uL (0.00-0.70); EOSINOPHILS % (AUTO) 0.9 % (0.0-8.0); HEMATOCRIT 35.6 % (36-48); IMMATURE GRANULOCYTE ABSOLUTE 0.02 K/uL (0-1); LYMPHOCYTES # (AUTO) 2.1 K/uL (1.0-4.8); MEAN CORPUSCULAR HEMOGLOBIN 31.8 pg (27.0-33.0); MEAN CORPUSCULAR HGB CONC 34.3 g/dL (32.0-36.0); MEAN CORPUSCULAR VOLUME 92.7 fL (79-99); MONOCYTES # (AUTO) 0.4 K/uL (0.1-1.0); MONOCYTES % (AUTO) 6.3 % (3.0-13.0); NEUTROPHILS # (AUTO) 4.4 K/uL (1.8-7.7); NEUTROPHILS % (AUTO) 62.2 % (40.0-77.0); PLATELET COUNT (AUTO) 215 K/uL (130-400); RED BLOOD CELL COUNT(AUTO) 3.84 MIL/uL (4.00-5.50); RED CELL DISTRIBUTION WIDTH 12.8 % (11.0-15.5)
[2023-10-22 17:55] LABS: INR <= 0.93 (0.85-1.15); PROTHROMBIN TIME 10.1 SEC (9.6-11.6)
[2023-10-22 17:57] LABS: CREATININE 0.5 mg/dL (0.5-1.0); PARTIAL THROMBOPLASTIN TIME 26.2 SEC (26.3-35.5); POTASSIUM 3.9 mmol/L (3.5-5.1)
[2023-10-22 18:28] LABS: ALBUMIN 3.5 g/dL (3.5-5.0); BILIRUBIN,TOTAL 0.3 mg/dL (0.2-1.0); TOTAL PROTEIN, SERUM 6.8 g/dL (6.0-8.3)
[2023-10-22] MEDS ORDERED: CEPH500B PO (18:40)
== END 2023-10-22 20:04 | disposition home or self-care (01) ==
LOC: EDH 16:37
DX: O23.41 Unspecified infection of urinary tract in pregnancy, first trimester (principal); N39.0 Urinary tract infection, site not specified; O26.891 Other specified pregnancy related conditions, first trimester; R10.2 Pelvic and perineal pain; Z3A.11 11 weeks gestation of pregnancy; O20.9 Hemorrhage in early pregnancy, unspecified; Z79.1 Long term (current) use of non-steroidal anti-inflammatories (NSAID); Z79.52 Long term (current) use of systemic steroids
CPT/HCPCS: 36415; 76801; 80053; 81001; 84702; 85025; 85610; 85730

== ENCOUNTER 2023-11-16 17:20 | Emergency (ER) | payer MEDICAID ==
[~2023-11-16] VITALS: Ht 160 cm; Wt 60.3 kg
[~2023-11-16 17:20] MED LIST changes: +CEPH500B PO
[2023-11-16 17:57] LABS: BASOPHILS # (AUTO) 0.01 K/uL (0.00-0.20); BASOPHILS % (AUTO) 0.1 % (0.0-5.0); EOSINOPHILS # (AUTO) 0.02 K/uL (0.00-0.70); EOSINOPHILS % (AUTO) 0.2 % (0.0-8.0); IMMATURE GRANULOCYTE ABSOLUTE 0.03 K/uL (0-1); LYMPHOCYTES # (AUTO) 1.5 K/uL (1.0-4.8); LYMPHOCYTES % (AUTO) 16.9 % (21.0-51.0); MEAN CORPUSCULAR HEMOGLOBIN 31.4 pg (27.0-33.0); MEAN CORPUSCULAR HGB CONC 35.3 g/dL (32.0-36.0); MONOCYTES # (AUTO) 0.4 K/uL (0.1-1.0); MONOCYTES % (AUTO) 4.6 % (3.0-13.0); NEUTROPHILS # (AUTO) 6.7 K/uL (1.8-7.7); NEUTROPHILS % (AUTO) 77.8 % (40.0-77.0); PLATELET COUNT (AUTO) 197 K/uL (130-400); RED BLOOD CELL COUNT(AUTO) 3.82 MIL/uL (4.00-5.50); RED CELL DISTRIBUTION WIDTH 12.7 % (11.0-15.5); WHITE BLOOD COUNT (AUTO) 8.6 K/uL (4.8-10.8)
[2023-11-16 18:15] LABS: CREATININE 0.5 mg/dL (0.5-1.0); POTASSIUM 3.7 mmol/L (3.5-5.1)
[2023-11-16 18:42] LABS: ALBUMIN 3.3 g/dL (3.5-5.0); BILIRUBIN,TOTAL 0.3 mg/dL (0.2-1.0); TOTAL PROTEIN, SERUM 6.9 g/dL (6.0-8.3)
[2023-11-16 18:48] LABS: APPEARANCE,URINE CLEAR (CLEAR); BILIRUBIN,URINE NEGATIVE (NEGATIVE); COLOR,URINE YELLOW (YELLOW); GLUCOSE, URINE (UA) NEGATIVE (NEGATIVE); KETONES,URINE NEGATIVE (NEGATIVE); LEUKOCYTE ESTERASE ,URINE NEGATIVE Leu/uL (NEGATIVE); NITRATE,URINE NEGATIVE (NEGATIVE); OCCULT BLOOD,URINE NEGATIVE (NEGATIVE); PH,URINE 5.5 (5.0-8.0); PROTEIN,URINE NEGATIVE (NEGATIVE)
[2023-11-16 18:50] LABS: ADD UA MICROSCOPIC YES
[2023-11-16] MEDS ORDERED: DOCU-116 PO (19:16)
[2023-11-16] MEDS ORDERED: DOXY1TAB3 PO (19:16)
[2023-11-16] MEDS ORDERED: ONDA-243 PO (19:16)
[2023-11-16 19:26] LABS: BACTERIA,URINE Few /HPF (None Seen); RBC,URINE 0-1 /HPF (0-1); SQUAMOUS EPITHELIAL CELL,UR Few /HPF (0-2)
[2023-11-16 19:27] LABS: MUCUS,URINE Moderate LPF (None Seen)
[2023-11-16 19:34] VITALS: BP 115/74; PULSE 68; RESP 20; O2SAT 99
== END 2023-11-16 19:36 | disposition home or self-care (01) ==
LOC: EDH 17:20
DX: O99.612 Diseases of the digestive system complicating pregnancy, second trimester (principal); K59.00 Constipation, unspecified; K29.70 Gastritis, unspecified, without bleeding; O26.892 Other specified pregnancy related conditions, second trimester; R10.2 Pelvic and perineal pain; Z3A.14 14 weeks gestation of pregnancy; Z79.899 Other long term (current) drug therapy
CPT/HCPCS: 36415; 76805; 80053; 81001; 83690; 84702; 85025

== ENCOUNTER 2024-04-24 10:56 | Observation (INO) | payer MEDICAID ==
[~2024-04-24] VITALS: Ht 160 cm; Wt 73.5 kg
[~2024-04-24 10:56] MED LIST changes: +DOXY1TAB3 PO
[2024-04-24 11:03] VITALS: BP 108/73; PULSE 87; RESP 18; TEMP 98.2
[2024-04-24] MEDS ORDERED: LACTATED RINGERS 1000ML 1,000 ML IV SCH (11:30)
[2024-04-24 11:50] LABS: APPEARANCE,URINE CLEAR (CLEAR); BILIRUBIN,URINE NEGATIVE (NEGATIVE); COLOR,URINE YELLOW (YELLOW); GLUCOSE, URINE (UA) NEGATIVE (NEGATIVE); KETONES,URINE NEGATIVE (NEGATIVE); LEUKOCYTE ESTERASE ,URINE NEGATIVE Leu/uL (NEGATIVE); NITRATE,URINE NEGATIVE (NEGATIVE); OCCULT BLOOD,URINE NEGATIVE (NEGATIVE); PH,URINE 6.5 (5.0-8.0); PROTEIN,URINE 20 mg/dL (NEGATIVE); UROBILINOGEN,URINE 3 mg/dL (0.2-1.0)
[2024-04-24 12:03] LABS: ADD UA MICROSCOPIC YES
[2024-04-24 12:12] LABS: BACTERIA,URINE RARE /HPF (None Seen); MUCUS,URINE MOD LPF (None Seen); RBC,URINE 0-1 /HPF (0-1); SQUAMOUS EPITHELIAL CELL,UR RARE /HPF (0-2)
--- NOTE | 2024-04-24 12:21 | HMCIMG ---
US FBP WO NON-STRESS REASON: DECREASED MOVEMENT COMPARISON: None TECHNIQUE: Routine biophysical profile was performed. FINDINGS: There is a single fetus in cephalic presentation with positive motion and heartbeat, 153 BPM. Placenta is anterior and grade 3 with YIN 15.2 cm. Biophysical profile score is 8 out of 8 points. IMPRESSION: 1. Normal biophysical profile, score is 8 out of 8 points.
== END 2024-04-24 12:15 | disposition home or self-care (01) ==
LOC: EDH 10:56 → LDH 10:57
PROVIDERS: ADMIT Obstetrics & Gynecology; ATTEND Obstetrics & Gynecology
DX: O36.8130 Decreased fetal movements, third trimester, not applicable or unspecified (principal); Z3A.37 37 weeks gestation of pregnancy; Z79.899 Other long term (current) drug therapy
CPT/HCPCS: 81001; 76819; G0378; G0379